=== PATIENT | female | born 1945 | race African-American/Black ===

== ENCOUNTER 2017-08-09 11:54 | Inpatient (IN) | payer MEDICAID, MEDICARE ==
[~2017-08-09] VITALS: Ht 172.7 cm; Wt 78.1 kg
[~2017-08-09 11:54] MED LIST: ISOR40SR PO; ISOS30TA6 PO; METO25 PO; OXYC-43 PO; RENEXA; WARF1 PO; WARF5 PO; ZOLP10TA7 PO; [UNRECOGNIZED DRUG - CODE] PO
[2017-08-09 12:33] LABS: BASOPHILS % (AUTO) 1.1 % (0.0-2.0); EOSINOPHILS % (AUTO) 1.3 % (1.0-6.0); HEMATOCRIT 42.4 % (36-46); HEMOGLOBIN 14.5 g/dL (12.0-16.0); LYMPHOCYTES # (AUTO) 1.3 K/uL (1.0-4.8); LYMPHOCYTES % (AUTO) 28.9 % (22.0-44.0); MEAN CORPUSCULAR HEMOGLOBIN 32.3 pg (26.0-34.0); MEAN CORPUSCULAR HGB CONC 34.3 G/dL (31.0-37.0); MEAN CORPUSCULAR VOLUME 94 fL (80-100); MONOCYTES # (AUTO) 0.4 K/uL (0.1-1.0); MONOCYTES % (AUTO) 8.8 % (2.0-9.0); NEUTROPHILS # (AUTO) 2.8 K/uL (1.8-7.7); NEUTROPHILS % (AUTO) 59.9 % (40.0-70.0); PLATELET COUNT (AUTO) 222 K/uL (150-450); RED BLOOD CELL COUNT(AUTO) 4.49 MIL/uL (4.00-5.20); RED CELL DISTRIBUTION WIDTH 12.9 % (11.5-14.5)
[2017-08-09 12:38] LABS: ANION GAP 8 mmol/L (8-16); CALCIUM, TOTAL 9.7 mg/dL (8.8-10.5); CARBON DIOXIDE 26 mmol/L (22-29); CHLORIDE 105 mmol/L (98-107); CREATININE 0.99 mg/dL (0.60-1.30); GLOMERULAR FILTR. RATE CALC > 60 mL/min (>60); GLUCOSE,RANDOM 91 mg/dL (70-110); PROTHROMBIN TIME 20.7 SEC (9.4-11.6); SODIUM SERUM 139 mmol/L (136-145); UREA NITROGEN, BLOOD 8 mg/dL (7-18)
[2017-08-09 13:01] LABS: B-TYPE NATRIURETIC PEPTIDE 162 pg/mL (0-100)
[2017-08-09 13:04] LABS: ALANINE AMINOTRANSFERASE 32 U/L (12-78); ALKALINE PHOSPHATASE 78 U/L (46-116); ASPARTATE AMINOTRANSFERASE 26 U/L (15-37); BILIRUBIN,TOTAL 0.6 mg/dL (0.1-1.0); CREATINE KINASE, TOTAL 93 U/L (26-192); LIPASE 134 U/L (73-393); TOTAL PROTEIN, SERUM 8.1 g/dL (6.4-8.2)
[2017-08-09 14:26] LABS: APPEARANCE,URINE CLEAR (CLEAR); BILIRUBIN,URINE NEGATIVE (NEGATIVE); GLUCOSE, URINE (UA) NEGATIVE (NEGATIVE); KETONES,URINE TRACE mg/dL (NEGATIVE); LEUKOCYTE ESTERASE ,URINE NEGATIVE (NEGATIVE); NITRATE,URINE NEGATIVE (NEGATIVE); OCCULT BLOOD,URINE NEGATIVE (NEGATIVE); PH,URINE 5.5 (5.0-8.0); PROTEIN,URINE NEGATIVE (NEGATIVE); UROBILINOGEN,URINE 0.2 mg/dL (<=1.0)
[2017-08-09] MEDS ORDERED: SODIUM CHLORIDE 0.9% 1,000 ML IV ONE (15:45)
[2017-08-09] MEDS ORDERED: POTASSIUM CHL 20 MEQ/D5-0.45NS 1,000 ML IV ONE (15:45)
[2017-08-09] MEDS ORDERED: ACETAMINOPHEN 325 MG TABLET PO PRN ×2 (15:45→21:30)
[2017-08-09] MEDS ORDERED: ONDANSETRON HCL 4 MG/2 ML VIAL IVP PRN (15:45)
[2017-08-09] MEDS ORDERED: 0.9% SODIUM CHLORIDE 10 ML SYRINGE IVP PRN (15:45)
[2017-08-09 17:00] VITALS: BP 119/66
[2017-08-09] MEDS ORDERED: WARF5 PO (19:01)
[2017-08-09] MEDS ORDERED: LORA1TAB3 PO (19:02)
[2017-08-09 20:00] VITALS: BP 129/75
[2017-08-09] MEDS ORDERED: WARFARIN SODIUM-INR 2.0-3.0-RX DOSING PER PROTOCOL PO PRN (21:30)
[2017-08-09] MEDS ORDERED: *CLINICAL-WARFARIN SODIUM DOSING CLINICAL ONE (21:30)
[2017-08-09] MEDS ORDERED: MAGNESIUM HYDROXIDE SUSPENSION 30 ML UDCUP PO PRN (21:30)
[2017-08-10] VITALS: BP 136/79
[2017-08-10 04:00] VITALS: BP 131/78
[2017-08-10 06:25] LABS: INR 1.8 (0.9-1.1); PROTHROMBIN TIME 18.3 SEC (9.4-11.6)
[2017-08-10 08:28] VITALS: BP 133/83
[2017-08-10] MEDS ORDERED: HYDROCODONE/ACETAMINOPHEN 5-325 MG TABLET PO PRN (09:00)
[2017-08-10] MEDS ORDERED: DOCUSATE SODIUM 100 MG CAPSULE PO SCH (09:00)
[2017-08-10] MEDS ORDERED: PANTOPRAZOLE SODIUM 40 MG DR TABLET PO SCH (09:00)
[2017-08-10] MEDS ORDERED: METOPROLOL TARTRATE 25 MG TABLET PO SCH (09:00)
[2017-08-10] MEDS ORDERED: WARF2 PO (09:02)
[2017-08-10] MEDS ORDERED: RANO500T3 PO (09:18)
[2017-08-10 11:58] VITALS: BP 134/76
[2017-08-10] MEDS ORDERED: WARFARIN SODIUM 2 MG TABLET PO ONE (17:00)
== END 2017-08-10 17:10 | disposition home or self-care (01) | DRG 880 ==
LOC: EDUNIT# 11:54 → EMS 11:56 → 6N 15:40
PROVIDERS: ADMIT Internal Medicine; ATTEND Internal Medicine
DX: F99 Mental disorder, not otherwise specified (principal); R62.7 Adult failure to thrive; I10 Essential (primary) hypertension; E78.00 Pure hypercholesterolemia, unspecified; R53.81 Other malaise; R26.2 Difficulty in walking, not elsewhere classified; F41.9 Anxiety disorder, unspecified; M41.9 Scoliosis, unspecified; G89.29 Other chronic pain; Z95.5 Presence of coronary angioplasty implant and graft; Z88.5 Allergy status to narcotic agent; Z88.8 Allergy status to other drugs, medicaments and biological substances; Z79.01 Long term (current) use of anticoagulants; Z79.899 Other long term (current) drug therapy; Z82.49 Family history of ischemic heart disease and other diseases of the circulatory system
CPT/HCPCS: 70450; 74176; 82306; 84443; 93005; 97161; 99285; J3480